=== PATIENT | female | born 1940 | race Caucasian/White ===

== ENCOUNTER 2021-05-13 11:09 | Outpatient (CLI) | payer MEDICARE, SELFPAY ==
--- NOTE | 2021-05-13 11:15 | USCV_ITS ---
Jatinder Pam Age: 81 Gender: F : 1940 Exam Date: 05/13/2021 11:26 Ordering Phys: Safia Mary MD ([email or web address]) Technologist: Kylee Smith [place] [facility] [place]: LEFT BUNDLE BRANCH BLOCK BP: 121 / 76 HR: 80 Rhythm: Sinus Technical Quality: Adequate MEASUREMENTS (Male / Female) Normal Values 2D ECHO LV Diastolic Diameter PLAX 6.5 cm 4.2 - 5.9 / 3.9 - 5.3 cm LV Systolic Diameter PLAX 5.5 cm IVS Diastolic Thickness 1.4 cm 0.6 - 1.0 / 0.6 - 0.9 cm IVS Systolic Thickness 2.3 cm LVPW Diastolic Thickness 1.3 cm 0.6 - 1.0 / 0.6 - 0.9 cm LVPW Systolic Thickness 2.0 cm LVOT Diameter 2.0 cm LV Ejection Fraction 2D Teich 32.4 % LV Ejection Fraction MOD 2C 24.1 % LV Ejection Fraction 2C AL 27.3 % LA Diameter 3.3 cm LA Width 3.8 cm LA Height 5.6 cm Aorta at Sinotubular Diameter 3.2 cm M-MODE Aortic Annulus Diameter 4.3 cm LA Ao Ratio MM 1.0 DOPPLER AV Peak Velocity 117.7 cm/s LVOT Peak Velocity 61.0 cm/s AV Area Cont Eq vti 1.5 cm squared AV Area Cont Eq pk 1.6 cm squared TR Peak Velocity 290.0 cm/s TR Peak Gradient 33.6 mmHg TV Peak E Velocity 40.0 cm/s Right Atrial Pressure 3.0 mmHg Pulmonary Artery Systolic Pressu 36.6 mmHg PV Peak Velocity 88.0 cm/s RV Acceleration Time 0.1 s RV Ejection Time 0.2 s RV AcT/ET 0.5 FINDINGS Left Ventricle Markedly dilated left ventricle. Severely decreased left ventricular systolic function. Left ventricular ejection fraction is estimated at 15-20 %. Severe global hypokinesis. Abnormal septal motion consistent with conduction abnormality. Right Ventricle Normal right ventricular size and systolic function. Right ventricular systolic pressure 36.6 mmHg. Right Atrium Normal right atrial size. Right atrial pressure estimated at 3 mmHg. Left Atrium Moderately increased left atrial size. Mitral Valve Severe mitral annular calcification. Thickened mitral valve. Mild-moderate mitral valve regurgitation. Aortic Valve Moderately thickened and calcified aortic valve. No aortic valve stenosis. Mild aortic valve regurgitation. Tricuspid Valve Tricuspid valve not well visualized. Trace to mild tricuspid valve regurgitation. Pulmonic Valve Pulmonic valve not well visualized. Pericardium Trivial pericardial effusion. Aorta Normal-sized aortic root. Normal-sized inferior vena cava with normal respiratory variation. CONCLUSIONS 1. Markedly dilated left ventricle. Severely decreased left ventricular systolic function. Left ventricular ejection fraction is estimated at 15-20 %. Severe global hypokinesis. Abnormal septal motion consistent with conduction abnormality. 2. Normal right ventricular size and systolic function. 3. Mild pulmonary hypertension with pulmonary artery pressure estimated at 37 mmHg. 4. Mild-moderate mitral valve regurgitation. 5. Mild aortic valve regurgitation. 6. No prior similar studies to compare. Safia Mary MD (Electronically Signed) Final Date: 13 May 2021 16:23 S
== END 2021-05-13 11:10 | disposition home or self-care (01) ==
LOC: US 11:11
PROVIDERS: PCP Family Medicine; Visit Provider Internal Medicine Cardiovascular Disease
DX: I44.7 Left bundle-branch block, unspecified (principal); I08.0 Rheumatic disorders of both mitral and aortic valves; I27.0 Primary pulmonary hypertension
CPT/HCPCS: 93306

== ENCOUNTER → 2021-05-27 10:23 | Outpatient (BNVA) | payer MEDICARE, SELFPAY | PROVIDERS: PCP Family Medicine; Visit Provider Internal Medicine Cardiovascular Disease | DX: I10 Essential (primary) hypertension (principal); I50.9 Heart failure, unspecified | CPT/HCPCS: 80053; 83735; 83880 ==